=== PATIENT | female | born 1980 | race Caucasian/White ===

== ENCOUNTER 2017-05-12 15:53 | Emergency (ER) | payer BC, MEDICAID ==
[2017-05-12] MEDS ORDERED: PROMETHAZINE HCL 50 MG/ML AMPUL IM ONE ×2 (16:38→16:39)
--- NOTE | 2017-05-12 17:21 | ERNOTE ---
Medical Problem HPI - Narrative Date of Service: 05/12/17 - General Chief Complaint: Nausea/Vomiting Time Seen by Provider: 05/12/17 16:28 Source: patient, RN notes reviewed, old records Exam Limitations: no limitations - Immun/Allergies/Home Medications Immunizations: IMMUNIZATION HX Immunizations Up to Date Yes History of Influenza Vaccine No Hx Pneumococcal Vaccination No Allergies/Adverse Reactions: Allergies No Known Allergies Allergy (Unverified 05/30/15 10:23) Home Medications: HOME MEDICATIONS Insulin Glargine,Hum.rec.anlog [Lantus] 10 units SC HS 05/30/15 [Last Taken Unknown] Promethazine HCl [Phenergan] 25 mg PO Q6H PRN #16 tablet 05/12/17 [Last Taken Unknown] - History of Present History Narrative: 36 year old female presents to the ED for nausea and vomiting after just being discharged from the ED for the same complaint approximately 2 hours ago. She was given Zofran for the n/v and reports that this is not effective. She also reports being given IV fluids, having labs drawn and having an abdominal xray. Date (Duration): 05/10/17 Timing: intermittent Review of Systems - Review of Systems Constitutional: Present: malaise. Absent: fever, chills EYE: Present: no symptoms reported ENT: Absent: nose congestion, sore throat Respiratory: Absent: shortness of breath, cough Cardiology: Absent: chest pain, palpitations Gastrointestinal/Abdominal: Present: nausea, vomiting, eating less, drinking less. Absent: diarrhea, abdominal pain Genitourinary: Absent: dysuria, decreased urinary output Musculoskeletal: Absent: back pain, joint pain Skin: Absent: rash, lesions Neurological: Absent: headache, dizziness/light-headedness Endocrine: Present: no symptoms reported Hematologic/Lymphatic: Present: no symptoms reported Psych: Present: no symptoms reported - Patient's Past Medical History Patient History - Medical: Chronic Pain, Diabetes Type 1 Patient History - Cardiac/Respiratory: No pertinent hx Patient History - Cancer: Other Patient History - Surgical Procedures: Appendectomy, Cholecystectomy, D & C, Hysterectomy Patient History - Other: None LMP (females 10-50): other - Social History Living Situations: home Abuse History: No History of abuse Psych History: No pertinent hx Smoking Status: Never smoker Have you smoked in the past 12 months: No Do you dip or chew tobacco: No Alcohol Use: none Drug Use: none - Immunizations Immunizations Up to Date: Yes Hx Pneumococcal Vaccination: No History of Influenza Vaccine: No Physical Exam - Physical Exam General Appearance: Present: alert, no apparent distress, thin Head Exam: Present: normal inspection Neck: Present: normal inspection, nontender, supple Respiratory: Present: no respiratory distress, normal breath sounds, no accessory muscle use, lungs clear Cardiovascular/Chest: Present: no murmur, tachycardia Gastrointestinal/Abdominal: Present: normal bowel sounds, nontender, nondistended, soft Extremity Exam: Present: normal inspection, normal range of motion, no edema Neurological Exam: Present: alert, oriented, normal mood/affect Skin Exam: Present: normal color, warm/dry ED Progress - Vital Signs Patient's Vital Signs:: I have reviewed the patient's vital signs. Vital Signs: Vital Signs 05/12/17 05/12/17 05/12/17 16:07 16:33 17:04 Temperature 36.3 C L Pulse Rate 121 H 113 H 107 H Respiratory 16 20 18 Rate Blood Pressure 103/76 116/72 117/75 O2 Sat by Pulse 99 100 100 Oximetry - Progress/Reassessment Chief Complaint: Nausea/Vomiting Progress:: Improved Plan - Plan Plan: Records from [facility] obtained and reviewed. No significant findings to suggest additional work-up is needed. Patient reports that she just wants some Phenergan because the Zofran does not work for her. Phenergan IM given with good results. Rx for po phenergan given as well. Departure Clinical Impression: Nausea and vomiting Qualifiers: Vomiting type: unspecified Vomiting Intractability: non-intractable Qualified Code(s): R11.2 - Nausea with vomiting, unspecified Diabetes Qualifiers: Diabetes mellitus type: type 2 Diabetes mellitus complication status: with unspecified complications Diabetes mellitus mcfp insulin use: with mcfp use Qualified Code(s): E11.8 - Type 2 diabetes mellitus with unspecified complications - Departure Disposition: Home Follow Up Needed Condition: Stable Instructions: Diabetes and Sick Day Management Additional Instructions: Continue your current medications Follow up in the next 2 days if symptoms continue, or return if symptoms worsen Referrals: Gamaliel Dill MD [Primary Care Provider] - Prescriptions: Promethazine HCl [Phenergan] 25 mg PO Q6H PRN #16 tablet PRN Reason: Nausea
[2017-05-12 17:26] VITALS: BP 116/67
== END 2017-05-12 17:22 | disposition home or self-care (01) ==
LOC: ER 15:53
DX: E11.8 Type 2 diabetes mellitus with unspecified complications (principal); R11.2 Nausea with vomiting, unspecified